=== PATIENT | male | born 1970 | race Caucasian/White ===

== ENCOUNTER 2017-01-24 19:12 | Emergency (ER) | payer MEDICAID, OTHER ==
[~2017-01-24 19:12] MED LIST: CETI10 PO; CLON.1 PO; CYMB30CA PO; FOLI1 PO; GABA600T PO; METHO500 PO; NAPR-576 PO; THIA100T PO
[2017-01-24] MEDS ORDERED: SODIUM CHLOR 0.9% 1000 ML INJ 1,000 ML IV SCH (19:22)
[2017-01-24] MEDS ORDERED: ONDANSETRON HCL 4 MG/2 ML VIAL IVP ONE (19:30)
[2017-01-24] MEDS ORDERED: LORazepam 2 MG/ML VIAL IV ONE (19:30)
[2017-01-24] MEDS ORDERED: THIAMINE INJ 100 MG in SODIUM CHLORIDE 0.9% INJ 100 ML IV ONE (19:45)
--- NOTE | 2017-01-24 19:48 | PD ---
HPI Chief Complaint: Alcohol/Drug Intoxication Time Seen by Provider: 19:44 Travel History International Travel<30 days: No Contact w/Intl Traveler<30days: No Traveled to known affect area: No History of Present Illness HPI 46-year-old male who presents to the ED that presents to the ED for evaluation of alcohol abuse. Patient states that he has a chronic history of alcoholism. Patient has been here before for the same. Patient states that he has been drinking a lot. Per patient the commercial manager at his apartment complex contacted the ambulance crew came and got him. Per patient he wants some detox. He denies any medical complaints. No chest pain or shortness of breath. She has been throwing up. He states that he's been drinking "way too much". He denies any other IV drug abuse. No allergies to medication. No abdominal pain. Denies any suicidal or homicidal ideation. Examination patient is appeared to be very intoxicated and because of this history is somewhat limited. [facility] Social History Alcohol Use: Yes (TONIGHT) Tobacco Use: Yes Substance Use: No Allergies-Medications (Allergen,Severity, Reaction): Coded Allergies: No Known Allergies (Unverified , 01/24/17) Reported Meds & Prescriptions Reported Meds & Active Scripts Active Cymbalta (Duloxetine HCl) 30 Mg Cap 30 Mg PO BID Robaxin 500 Mg Tab (Methocarbamol) 500 Mg Tab 500 Mg PO QID Folate 1 Mg Tab (Folic Acid) 1 Mg Tab 1 Mg PO DAILY Thiamine HCl 100 Mg Tab 100 Mg PO DAILY Gabapentin 600 Mg Tab 600 Mg PO QID Zyrtec 10 Mg Tab (Cetirizine HCl) 10 Mg Tab 10 Mg PO DAILY Naproxen 500 Mg Tab 500 Mg PO BID Catapres 0.1 mg (Clonidine HCl) 0.1 Mg Tab 1 Tab PO BID Review of Systems ROS Limitations: Intoxication Except as stated in HPI: all other systems reviewed are Neg Physical Exam Exam Limitations: Intoxication Narrative GENERAL: SKIN: Warm and dry. HEAD: Atraumatic. Normocephalic. EYES: Pupils equal and round. No scleral icterus. No injection or drainage. ENT: No nasal bleeding or discharge. Mucous membranes pink and moist. Tongue is midline. No Uvula deviation. NECK: Trachea midline. No JVD. CARDIOVASCULAR: Regular rate and rhythm. No murmurs, S3, S4 RESPIRATORY: No accessory muscle use. Clear to auscultation. Breath sounds equal bilaterally. GASTROINTESTINAL: Abdomen soft, non-tender, nondistended. Hepatic and splenic margins not palpable. MUSCULOSKELETAL: Extremities without clubbing, cyanosis, or edema. No obvious deformities. NEUROLOGICAL: Awake and alert. No obvious cranial nerve deficits. Motor grossly within normal limits. Five out of 5 muscle strength in the arms and legs. Normal speech. PSYCHIATRIC: Intoxicated mood and affect; insight and judgment normal. Data Data Last Documented VS Vital Signs Date Time Temp Pulse Resp B/P Pulse Ox O2 Delivery O2 Flow Rate FiO2 01/24/17 20:47 90 16 126/76 95 Room Air 01/24/17 19:50 98.7 Orders Complete Blood Count With Diff (01/24/17 19:22) Comprehensive Metabolic Panel (01/24/17 19:22) Iv Access Insert/Monitor (01/24/17 19:22) Psych Screen (01/24/17 19:22) Lorazepam Inj (Ativan Inj) (01/24/17 19:30) Drug Screen, Random Urine (01/24/17 19:22) Alcohol (Ethanol) (01/24/17 19:22) Ondansetron Inj (Zofran Inj) (01/24/17 19:30) Sodium Chlor 0.9% 1000 Ml Inj (Ns 1000 M (01/24/17 19:22) Thiamine Inj (Thiamine Inj) (01/24/17 19:45) Potassium Chloride (Kcl) (01/24/17 21:00) Alcohol Withdrawal Asmt-Ciwa ONCE (01/24/17 21:09) Ondansetron Inj (Zofran Inj) (01/24/17 21:15) Flumazenil Inj (Romazicon Inj) (01/24/17 21:15) Lorazepam (Ativan) (01/24/17 21:15) Lorazepam Inj (Ativan Inj) (01/24/17 21:15) Lorazepam (Ativan) (01/24/17 21:15) Lorazepam Inj (Ativan Inj) (01/24/17 21:15) Lorazepam Inj (Ativan Inj) (01/24/17 21:15) Lorazepam Inj (Ativan Inj) (01/24/17 21:15) Labs Laboratory Tests Test 01/24/17 20:00 White Blood Count 4.4 TH/MM3 Red Blood Count 5.07 MIL/MM3 Hemoglobin 17.1 GM/DL Hematocrit 49.2 % Mean Corpuscular Volume 97.0 FL Mean Corpuscular Hemoglobin 33.8 PG Mean Corpuscular Hemoglobin 34.9 % Concent Red Cell Distribution Width 14.0 % Platelet Count 84 TH/MM3 Mean Platelet Volume 9.8 FL Neutrophils (%) (Auto) 66.0 % Lymphocytes (%) (Auto) 23.6 % Monocytes (%) (Auto) 9.5 % Eosinophils (%) (Auto) 0.4 % Basophils (%) (Auto) 0.5 % Neutrophils # (Auto) 2.9 TH/MM3 Lymphocytes # (Auto) 1.0 TH/MM3 Monocytes # (Auto) 0.4 TH/MM3 Eosinophils # (Auto) 0.0 TH/MM3 Basophils # (Auto) 0.0 TH/MM3 CBC Comment AUTO DIFF Differential Comment AUTO DIFF CONFIRMED Platelet Estimate LOW Platelet Morphology Comment NORMAL Sodium Level 140 MEQ/L Potassium Level 3.0 MEQ/L Chloride Level 102 MEQ/L Carbon Dioxide Level 25.0 MEQ/L Anion Gap 13 MEQ/L Blood Urea Nitrogen 7 MG/DL Creatinine 1.06 MG/DL Estimat Glomerular Filtration 75 ML/MIN Rate Random Glucose 126 MG/DL Calcium Level 8.8 MG/DL Total Bilirubin 1.5 MG/DL Aspartate Amino Transf 389 U/L (AST/SGOT) Alanine Aminotransferase 290 U/L (ALT/SGPT) Alkaline Phosphatase 136 U/L Total Protein 8.2 GM/DL Albumin 3.9 GM/DL Urine Opiates Screen NEG Urine Barbiturates Screen NEG Urine Amphetamines Screen NEG Urine Benzodiazepines Screen NEG Urine Cocaine Screen NEG Urine Cannabinoids Screen NEG Ethyl Alcohol Level 359 MG/DL [facility] Medical Decision Making Medical Screen Exam Complete: Yes Emergency Medical Condition: Yes Medical Record Reviewed: Yes Interpretation(s) CBC & BMP Diagram 01/24/17 20:00 alcohol in the 390s LFTs elevated Differential Diagnosis Alcohol abuse versus alcohol dependence versus overdose versus alcohol withdrawal Narrative Course 46-year-old male that presents to the ED for evaluation of alcohol abuse. Patient was properly examined and was found to have signs and symptoms consistent with alcohol abuse. History is somewhat limited because of patient' s intoxication status. At This time I recommend labs and history of for medical clearance. Patient was given IV fluids as well as thiamine, Zofran, Ativan to help with his withdrawals. Labs showed elevated LFTs as well as highly elevated alcohol. Patient is still very intoxicated on my evaluation on 9:11 PM. At this time I recommend sidewalk and discharged to act once patient is clinically sober. Patient will be signed out to my attending pending reevaluation for clinical sobriety. Diagnosis Primary Impression: Alcohol abuse Renny Clayton Jan 24, 2017 19:48
[2017-01-24 19:50] VITALS: BP 125/95; PULSE 94; RESP 20; TEMP 98.7; O2SAT 97
[2017-01-24 20:18] LABS: AUTOMATED NEUTROPHIL # 2.9 TH/MM3 (1.8-7.7); BASOPHIL % 0.5 % (0.0-2.0); EOSINOPHIL % 0.4 % (0.0-4.0); HEMATOCRIT 49.2 % (39.0-51.0); LYMPH % 23.6 % (9.0-44.0); MEAN CORPUSCULAR HEMOGLOBIN 33.8 PG (27.0-34.0); MEAN CORPUSCULAR HGB CONC 34.9 % (32.0-36.0); MONO % 9.5 % (0.0-8.0); PLATELET COUNT 84 TH/MM3 (150-450); RED BLOOD COUNT 5.07 MIL/MM3 (4.50-5.90); WHITE BLOOD COUNT 4.4 TH/MM3 (4.0-11.0)
[2017-01-24 20:19] LABS: HEMO FLAGS AUTO DIFF
[2017-01-24 20:27] LABS: AMPHETAMINE, URINE NEG (NEG); BARBITURATES, URINE NEG (NEG); COCAINE, URINE NEG (NEG)
[2017-01-24 20:32] LABS: ANION GAP 13 MEQ/L (5-15)
[2017-01-24 20:36] LABS: ALKALINE PHOSPHATASE 136 U/L (45-117); ALT (GPT) 290 U/L (12-78); AST (GOT) 389 U/L (15-37); BLOOD UREA NITROGEN 7 MG/DL (7-18); CHLORIDE 102 MEQ/L (98-107); GLOMERULAR FILTRATION RATE 75 ML/MIN (>89); SODIUM (NA) 140 MEQ/L (136-145); TOTAL BILIRUBIN ADULT 1.5 MG/DL (0.2-1.0)
[2017-01-24 20:47] VITALS: BP 126/76; PULSE 90; RESP 16; O2SAT 95
[2017-01-24 20:54] LABS: PLATELET ESTIMATE SMEAR LOW (NORMAL); PLATELET MORPHOLOGY NORMAL (NORMAL); SCAN/DIFF AUTO DIFF CONFIRMED
[2017-01-24] MEDS ORDERED: POTASSIUM CHLORIDE 20 MEQ CONTROLLED RELEASE TAB PO ONE (21:00)
[2017-01-24] MEDS ORDERED: LORazepam 2 MG TAB PO PRN (21:15)
[2017-01-24] MEDS ORDERED: FLUMAZENIL 0.5 MG/5 ML VIAL IV PUSH PRN (21:15)
[2017-01-24] MEDS ORDERED: ONDANSETRON HCL 4 MG/2 ML VIAL IV PUSH PRN (21:15)
[2017-01-24] MEDS ORDERED: LORazepam 1 MG TAB PO PRN (21:15)
[2017-01-24] MEDS ORDERED: LORazepam 2 MG/ML VIAL IV PUSH PRN ×4 (21:15)
[2017-01-24] MEDS ORDERED: VITA100T2 PO (21:22)
[2017-01-24] MEDS ORDERED: GABA600T PO (21:22)
[2017-01-24] MEDS ORDERED: CAFF200T PO (21:22)
[2017-01-24] MEDS ORDERED: METH500T3 PO (21:22)
[2017-01-24 21:38] VITALS: BP 137/96; PULSE 91; RESP 16; TEMP 98; O2SAT 98
[2017-01-24 22:31] VITALS: BP 129/70; PULSE 92; RESP 16; TEMP 98.5; O2SAT 98
[2017-01-24 23:15] VITALS: BP 134/78; PULSE 88; RESP 16; O2SAT 99
[2017-01-25] MEDS ORDERED: HALOPERIDOL LACTATE 5 MG/ML AMP IM ONE (00:30)
--- NOTE | 2017-01-25 00:52 | PD ---
Physical Exam Narrative I, Dr. Agudelo, have reviewed the advance practice practitioner's documentation and am in agreement, met with the patient face to face, made the diagnosis, and the medical decision making was done by me. *My assessment and Findings: Patient is a 46-year-old male comes in intoxicated. Exam shows no signs of trauma. Patient given Ativan. Data Data Last Documented VS Vital Signs Date Time Temp Pulse Resp B/P Pulse Ox O2 Delivery O2 Flow Rate FiO2 01/25/17 05:00 77 16 122/68 98 Room Air 01/24/17 22:31 98.5 Orders Complete Blood Count With Diff (01/24/17 19:22) Comprehensive Metabolic Panel (01/24/17 19:22) Iv Access Insert/Monitor (01/24/17 19:22) Lorazepam Inj (Ativan Inj) (01/24/17 19:30) Drug Screen, Random Urine (01/24/17 19:22) Alcohol (Ethanol) (01/24/17 19:22) Ondansetron Inj (Zofran Inj) (01/24/17 19:30) Sodium Chlor 0.9% 1000 Ml Inj (Ns 1000 M (01/24/17 19:22) Thiamine Inj (Thiamine Inj) (01/24/17 19:45) Potassium Chloride (Kcl) (01/24/17 21:00) Alcohol Withdrawal Asmt-Ciwa ONCE (01/24/17 21:09) Ondansetron Inj (Zofran Inj) (01/24/17 21:15) Flumazenil Inj (Romazicon Inj) (01/24/17 21:15) Lorazepam (Ativan) (01/24/17 21:15) Lorazepam Inj (Ativan Inj) (01/24/17 21:15) Lorazepam (Ativan) (01/24/17 21:15) Lorazepam Inj (Ativan Inj) (01/24/17 21:15) Lorazepam Inj (Ativan Inj) (01/24/17 21:15) Lorazepam Inj (Ativan Inj) (01/24/17 21:15) Haloperidol Inj (Haldol Inj) (01/25/17 00:30) Lorazepam (Ativan) (01/25/17 01:00) Restraints Non-Violent ANSELMO.Q3H (01/25/17 00:51) Labs Laboratory Tests Test 01/24/17 20:00 White Blood Count 4.4 TH/MM3 Red Blood Count 5.07 MIL/MM3 Hemoglobin 17.1 GM/DL Hematocrit 49.2 % Mean Corpuscular Volume 97.0 FL Mean Corpuscular Hemoglobin 33.8 PG Mean Corpuscular Hemoglobin 34.9 % Concent Red Cell Distribution Width 14.0 % Platelet Count 84 TH/MM3 Mean Platelet Volume 9.8 FL Neutrophils (%) (Auto) 66.0 % Lymphocytes (%) (Auto) 23.6 % Monocytes (%) (Auto) 9.5 % Eosinophils (%) (Auto) 0.4 % Basophils (%) (Auto) 0.5 % Neutrophils # (Auto) 2.9 TH/MM3 Lymphocytes # (Auto) 1.0 TH/MM3 Monocytes # (Auto) 0.4 TH/MM3 Eosinophils # (Auto) 0.0 TH/MM3 Basophils # (Auto) 0.0 TH/MM3 CBC Comment AUTO DIFF Differential Comment AUTO DIFF CONFIRMED Platelet Estimate LOW Platelet Morphology Comment NORMAL Sodium Level 140 MEQ/L Potassium Level 3.0 MEQ/L Chloride Level 102 MEQ/L Carbon Dioxide Level 25.0 MEQ/L Anion Gap 13 MEQ/L Blood Urea Nitrogen 7 MG/DL Creatinine 1.06 MG/DL Estimat Glomerular Filtration 75 ML/MIN Rate Random Glucose 126 MG/DL Calcium Level 8.8 MG/DL Total Bilirubin 1.5 MG/DL Aspartate Amino Transf 389 U/L (AST/SGOT) Alanine Aminotransferase 290 U/L (ALT/SGPT) Alkaline Phosphatase 136 U/L Total Protein 8.2 GM/DL Albumin 3.9 GM/DL Urine Opiates Screen NEG Urine Barbiturates Screen NEG Urine Amphetamines Screen NEG Urine Benzodiazepines Screen NEG Urine Cocaine Screen NEG Urine Cannabinoids Screen NEG Ethyl Alcohol Level 359 MG/DL [facility] Supervised Visit with [place]: Yes Narrative Course Patient has an elevated blood alcohol level. Observed in the ED until sober. Discharged home. Advised to stop alcohol use. Advised to return to the ED as needed for any worsening symptoms. Diagnosis Primary Impression: Alcohol abuse Patient Instructions: Alcohol Intoxication (ED), General Instructions Additional Instruction: Avoid alcohol use. Follow up with your doctor. Return to the ED as needed for any worsening symptoms. Disposition: DISCHARGE HOME Condition: Stable Geetha Agudelo MD Jan 25, 2017 00:52
[2017-01-25 01:00] VITALS: BP 140/75; PULSE 84; RESP 16; O2SAT 99
[2017-01-25] MEDS ORDERED: LORazepam 1 MG TAB PO ONE (01:00)
[2017-01-25 03:00] VITALS: BP 129/74; PULSE 79; RESP 16; O2SAT 97
[2017-01-25 05:00] VITALS: BP 122/68; PULSE 77; RESP 16; O2SAT 98
== END 2017-01-25 06:59 | disposition home or self-care (01) ==
LOC: NEPC 19:12 → NEPB 01-25 06:59
DX: F10.229 Alcohol dependence with intoxication, unspecified (principal); Y90.8 Blood alcohol level of 240 mg/100 ml or more; Z79.899 Other long term (current) drug therapy
CPT/HCPCS: 80053; 80307; 85025; 96365; 96375; 99285; J2060; J2405; J3411; J7030